=== PATIENT | female | born 1990 | race American Indian/Alaskan Native ===

== ENCOUNTER 2017-12-29 13:35 | Emergency (ER) | payer MEDICAID ==
[2017-12-29 13:48] VITALS: RESP 18; TEMP 98; O2SAT 100
[2017-12-29 14:24] LABS: HCG,QUALITATIVE URINE NEGATIVE (NEGATIVE)
[2017-12-29] MEDS ORDERED: Lidocaine 5% Patch TD STA (14:32)
[2017-12-29 14:39] LABS: SQUAMOUS EPITHIAL 6 /hpf (0-5); URINE BILIRUBIN NEGATIVE (NEGATIVE); URINE BLOOD NEGATIVE (NEGATIVE); URINE CLARITY Hazy (Clear); URINE COLOR Yellow (YELLOW); URINE GLUCOSE (UA) NORMAL (Normal); URINE LEUKOCYTE ESTERASE NEG Leu/uL (Negative); URINE PROTEIN 1+ mg/dL (NEGATIVE); URINE UROBILINOGEN NORMAL mg/dL (0.2-1.0)
[2017-12-29] MEDS ORDERED: Lidocaine 5% Patch TD ONE (14:39)
--- NOTE | 2017-12-29 15:33 | C.PDOC ---
History Of Present Illness 27 year old female presents to the ED for evaluation of lower back pain for 2 days . Patient denies recent injury/trauma, fever, chills, urinary/bowel incontinence, extremity numbness/weakness, pelvic pain, dysuria, hematuria, or similar back pain in the past. Time Seen by Provider: 12/29/17 13:57 Chief Complaint (Nursing): Back Pain History Per: Patient History/Exam Limitations: no limitations Onset/Duration Of Symptoms: Days (2) Current Symptoms Are (Timing): Still Present Quality Of Discomfort: "Pain" Previous Symptoms: Back Pain Associated Symptoms: denies: Incontinence, New Weakness, New Numbness Additional History Per: Patient Past Medical History Reviewed: Historical Data, Nursing Documentation, Vital Signs Vital Signs: Last Vital Signs Temp 98 F 12/29/17 13:45 Pulse 83 12/29/17 13:45 Resp 18 12/29/17 13:45 BP 103/68 12/29/17 13:45 Pulse Ox 100 12/29/17 13:45 - Medical History PMH: No Chronic Diseases Surgical History: No Surg Hx Family History: States: Unknown Family Hx - Social History Hx Alcohol Use: Yes Hx Substance Use: Yes - Immunization History Hx Tetanus Toxoid Vaccination: Yes Hx Influenza Vaccination: No Hx Pneumococcal Vaccination: No Review Of Systems Constitutional: Negative for: Fever, Chills Genitourinary: Negative for: Dysuria, Incontinence, Hematuria Musculoskeletal: Positive for: Back Pain Neurological: Negative for: Weakness, Numbness Physical Exam - Physical Exam Appears: Non-toxic, No Acute Distress Skin: Normal Color, Warm, Dry Head: Atraumatic, Normacephalic Eye(s): bilateral: Normal Inspection Oral Mucosa: Moist Neck: Supple Chest: Symmetrical, No Deformity, No Tenderness Back: Muscle Spasm, Other (lumbosaccral spine tenderness) Extremity: Normal ROM, Capillary Refill (less than 2 seconds ) Neurological/Psych: Oriented x3, Normal Speech, Normal Cognition ED Course And Treatment O2 Sat by Pulse Oximetry: 100 (on RA) Pulse Ox Interpretation: Normal - Other Rad LS spine XR X-Ray: Viewed By Me, Read By Radiologist Interpretation: Date of service: 12/29/2017. PROCEDURE: Radiographs of the Lumbar Spine. HISTORY: pain. COMPARISON: No prior. FINDINGS: BONES: Alignment appears satisfactory. No listhesis. No acute displaced fracture identified. DISC SPACES: Unremarkable. OTHER FINDINGS: None. IMPRESSION: No acute displaced fracture or subluxation identified. Progress Note: Urinalysis and LS Spine XR ordered and reviewed. Lidoderm TD, Toradol IM, and Valium PO given. On reassessment, patient is resting comfortably, showing no signs of distress and reports an improvement in her symptoms. Patient is ambulatory in the ED without distress and is stable for discharge. Patient is advised to follow up with her PMD within 1-2 days for further evaluation. Disposition - Disposition Disposition: HOME/ ROUTINE Disposition Time: 16:14 Condition: STABLE Additional Instructions: Follow up wiyj your PMD within 1-2 days. Return to ED if feel worse. Prescriptions: Lidocaine 5% [Lidoderm] 1 patch TP DAILY #30 patch Naproxen [Naprosyn] 1 tab PO BID PRN #25 tab PRN Reason: Pain diaZEpam [Valium] 2 mg PO TID #15 tab Instructions: Low Back Pain in Adults Forms: [facility] (Swiss), Work Excuse - Clinical Impression Clinical Impression: Low back pain - PA / STAFF ASSISTANT / Resident Statement MD/DO has reviewed & agrees with the documentation as recorded. - Scribe Statement The provider has reviewed the documentation as recorded by the Scribe (Jia Howe) All medical record entries made by the Scribe were at my direction and personally dictated by me. I have reviewed the chart and agree that the record accurately reflects my personal performance of the history, physical exam, medical decision making, and the department course for this patient. I have also personally directed, reviewed, and agree with the discharge instructions and di sposition.
[2017-12-29 16:02] VITALS: BP 106/67; PULSE 62
--- NOTE | 2017-12-29 16:04 | RAD ---
Date of service: 12/29/2017 PROCEDURE: Radiographs of the Lumbar Spine. HISTORY: pain COMPARISON: No prior. FINDINGS: BONES: Alignment appears satisfactory. No listhesis. No acute displaced fracture identified. DISC SPACES: Unremarkable. OTHER FINDINGS: None. IMPRESSION: No acute displaced fracture or subluxation identified.
== END 2017-12-29 16:22 | disposition home or self-care (01) ==
LOC: C.ER 13:35
DX: M54.5 Low back pain (principal)
CPT/HCPCS: 72100; 81001; 84703; 96372; 99283; J1885